=== PATIENT | female | born 1950 | race Caucasian/White ===

== ENCOUNTER 2019-08-19 16:06 | Emergency (ER) | payer MEDICARE ==
[2019-08-19] MEDS ORDERED: Meclizine 25 MG Tab PO ONE (17:40)
--- NOTE | 2019-08-19 18:15 | EDM.PDOC ---
ED HPI GENERAL MEDICAL PROBLEM - General Chief Complaint: General Stated Complaint: DIZZNESS Time Seen by Provider: 08/19/19 17:33 Source of Information: Reports: Patient History Limitations: Reports: No Limitations - History of Present Illness INITIAL COMMENTS - FREE TEXT/NARRATIVE: HISTORY AND PHYSICAL: History of present illness: Patient is a 69-year-old female who presents to the emergency room with complaints of intermittent nonspecific dizziness and localized area of soft tissue swelling to the left midfoot. She states she was diagnosed with influenza approximately 2 weeks ago and since that time has had intermittent episodes of dizziness. She states this is not precipitated by head movement or standing up quickly. She states it will come on all of a sudden and will last just a few seconds. She does not get to the point where she feels like she is going to pass out or blackout. This morning she noticed a small area of soft tissue swelling to the midfoot which is localized. States she is concerned as she does not recall any injury, trauma or problems with her shoes. Patient denies any fever, chills, headache, change in vision, syncope or near syncope. Denies any chest pain, back pain, shortness of breath or cough. Denies any GI or symptoms. Patient has been eating and drinking appropriately. Review of systems: As per history of present illness and below otherwise all systems reviewed and negative. Past medical history: As per history of present illness and as reviewed below otherwise noncontributory. Surgical history: As per history of present illness and as reviewed below otherwise noncontributory. Social history: See social history for further information Family history: As per history of present illness and as reviewed below otherwise noncontributory. Physical exam: General: Well-developed and well-nourished 69-year-old female. Alert and oriented. Nontoxic-appearing and in no acute distress. HEENT: Atraumatic, normocephalic, pupils equal and reactive bilaterally, negative for conjunctival pallor or scleral icterus, mucous membranes moist, TMs normal bilaterally, throat clear, neck supple, nontender, trachea midline. No drooling or trismus noted. No meningeal signs. No hot potato voice noted. Lungs: Clear to auscultation, breath sounds equal bilaterally, chest nontender. Heart: S1S2, regular rate and rhythm without overt murmur Abdomen: Soft, nondistended, nontender. Negative for masses or hepatosplenomegaly. Negative for costovertebral tenderness. Skin: Small nickel sized area of soft tissue swelling to the midfoot, non- erythematous and nontender to palpation. The area is nonfluctuant and nonindurated. Remaining skin is intact, warm, dry. No lesions or rashes noted. Extremities: Atraumatic, moves all extremities per self without difficulty or deficits, negative for cords or calf pain. See skin for details. Neurovascular unremarkable. Neuro: Awake, alert, oriented. Cranial nerves II through XII unremarkable. Cerebellum unremarkable. Motor and sensory unremarkable throughout. Exam nonfocal. Notes: Lab work is unremarkable. At this time I do not feel any imaging is warranted. Her vital signs remained stable. We discussed signs and symptoms that would prompt her to return to the emergency room. She states she does not have a primary care provider, I did give her information for close follow-up and establishing care. Supportive care measures were reviewed and discussed. Voices understanding and is agreeable to plan of care. Denies any further questions or concerns at this time. Diagnostics: CBC, CMP Therapeutics: Meclizine Prescription: None Impression: Dizziness Localized swelling, left foot Plan: 1. Today's lab work is unremarkable. Continue to monitor the foot for redness, increased swelling, etc... 2. You may alternate Tylenol and ibuprofen as needed for pain management 3. Establish care with a primary care provider and follow-up as we discussed. Return to the ED as needed and as discussed. Definitive disposition and diagnosis as appropriate pending reevaluation and review of above. - Related Data Allergies Allergy/AdvReac Type Severity Reaction Status Date / Time Penicillins Allergy Other Verified 08/19/19 16:46 statins Allergy Itching Uncoded 08/19/19 16:50 Home Meds: Home Meds . [No Known Home Meds] 08/19/19 [History] Past Medical History - Infectious Disease History Infectious Disease History: Reports: Chicken Pox, Measles - Past Surgical History HEENT Surgical History: Reports: Tonsillectomy GI Surgical History: Reports: Appendectomy, Cholecystectomy Female Surgical History: Reports: Hysterectomy Social & Family History - Family History Family Medical History: Noncontributory - Tobacco Use Smoking Status *Q: Never Smoker - Caffeine Use Caffeine Use: Reports: Coffee - Recreational Drug Use Recreational Drug Use: No ED ROS GENERAL - Review of Systems Review Of Systems: Comprehensive ROS is negative, except as noted in HPI. ED EXAM, GENERAL - Physical Exam Exam: See Below (See dictation) Course - Vital Signs Last Recorded V/S: Last Vital Signs Temp 97.2 F 08/19/19 16:46 Pulse 72 08/19/19 17:55 Resp 19 08/19/19 17:55 BP 152/70 H 08/19/19 17:55 Pulse Ox 96 08/19/19 17:55 - Orders/Labs/Meds Labs: Laboratory Tests 08/19/19 08/19/19 Range/Units 18:16 18:16 WBC 7.29 (4.0-11.0) K/uL RBC 4.86 (4.30-5.90) M/uL Hgb 13.8 (12.0-16.0) g/dL Hct 42.6 (36.0-46.0) % MCV 87.7 (80.0-98.0) fL MCH 28.4 (27.0-32.0) pg MCHC 32.4 (31.0-37.0) g/dL RDW Std Deviation 47.8 (28.0-62.0) fl RDW Coeff of John 15 (11.0-15.0) % Plt Count 300 (150-400) K/uL MPV 9.70 (7.40-12.00) fL Neut % (Auto) 56.2 (48.0-80.0) % Lymph % (Auto) 35.0 (16.0-40.0) % [place] % (Auto) 7.4 (0.0-15.0) % Eos % (Auto) 1.0 (0.0-7.0) % Baso % (Auto) 0.4 (0.0-1.5) % Neut # (Auto) 4.1 (1.4-5.7) K/uL Lymph # (Auto) 2.6 H (0.6-2.4) K/uL [place] # (Auto) 0.5 (0.0-0.8) K/uL Eos # (Auto) 0.1 (0.0-0.7) K/uL Baso # (Auto) 0.0 (0.0-0.1) K/uL Nucleated RBC % 0.0 /100WBC Nucleated RBCs # 0 K/uL Sodium 143 (136-145) mmol/L Potassium 4.9 (3.5-5.1) mmol/L Chloride 106 (98-107) mmol/L Carbon Dioxide 31.0 (21.0-32.0) mmol/L BUN 19 H (7.0-18.0) mg/dL Creatinine 0.8 (0.6-1.0) mg/dL Est Cr Clr Drug Dosing 66.95 mL/min Estimated GFR (MDRD) > 60.0 ml/min Glucose 99 (74-106) mg/dL Calcium 9.4 (8.5-10.1) mg/dL Total Bilirubin 0.3 (0.2-1.0) mg/dL AST 20 (15-37) IU/L ALT 26 (14-63) IU/L Alkaline Phosphatase 85 (46-116) U/L Total Protein 7.5 (6.4-8.2) g/dL Albumin 3.6 (3.4-5.0) g/dL Globulin 3.9 (2.6-4.0) g/dL Albumin/Globulin Ratio 0.9 (0.9-1.6) Meds: Medications Discontinued Medications Generic Name Dose Route Start Last Admin Trade Name Freq PRN Reason Stop Dose Admin Meclizine HCl 25 mg 08/19/19 17:40 08/19/19 17:54 Antivert PO 08/19/19 17:41 25 mg ONETIME ONE Administration Departure - Departure Time of Disposition: 18:49 Disposition: Home, Self-Care 01 Clinical Impression: Dizziness, Localized swelling of left foot - Discharge Information Instructions: Dizziness, [id number] Referrals: PCP,None [Primary Care Provider] - Forms: ED Department Discharge Additional Instructions: The following information is given to patients seen in the emergency department who are being discharged to home. This information is to outline your options for follow-up care. We provide all patients seen in our emergency department with a follow-up referral. The need for follow-up, as well as the timing and circumstances, are variable depending upon the specifics of your emergency department visit. If you don't have a primary care physician on staff, we will provide you with a referral. We always advise you to contact your personal physician following an emergency department visit to inform them of the circumstance of the visit and for follow-up with them and/or the need for any referrals to a consulting specialist. The emergency department will also refer you to a specialist when appropriate. This referral assures that you have the opportunity for follow-up care with a specialist. All of these measure are taken in an effort to provide you with optimal care, which includes your follow-up. Under all circumstances we always encourage you to contact your private physician who remains a resource for coordinating your care. When calling for follow-up care, please make the office aware that this follow-up is from your recent emergency room visit. If for any reason you are refused follow-up, please contact the [facility] Emergency Department at and asked to speak to the emergency department charge nurse. [facility] [address] [place] [id number] [place] [address] 1. Today's lab work is unremarkable. Continue to monitor the foot for redness, increased swelling, etc... In total: if symptoms worsen, new symptoms develop - please follow up with primary care or ED as we discussed. 2. You may alternate Tylenol and ibuprofen as needed for pain management 3. Establish care with a primary care provider and follow-up as we discussed. Return to the ED as needed and as discussed. Sepsis Event Note - Evaluation Sepsis Screening Result: No Definite Risk - Focused Exam Vital Signs: Vital Signs Temp Pulse Resp BP Pulse Ox 08/19/19 17:55 72 19 152/70 H 96 08/19/19 16:46 97.2 F 71 17 176/83 H 97 Date Exam was Performed: 08/19/19 Time Exam was Performed: 18:51
[2019-08-19 18:47] LABS: BLOOD UREA NITROGEN,BUN 19 mg/dL (7.0-18.0); CHLORIDE,CL 106 mmol/L (98-107); GLUCOSE RANDOM 99 mg/dL (74-106); POTASSIUM,K 4.9 mmol/L (3.5-5.1); SODIUM,NA 143 mmol/L (136-145)
== END 2019-08-19 19:00 | disposition home or self-care (01) ==
LOC: MW.ED 16:06
DX: R42 Dizziness and giddiness (principal); R22.42 Localized swelling, mass and lump, left lower limb; Z88.0 Allergy status to penicillin; Z88.8 Allergy status to other drugs, medicaments and biological substances
CPT/HCPCS: 36415; 80053; 85025; 99284; A9270; 99283

== ENCOUNTER 2020-01-02 14:34 | Emergency (ER) | payer MEDICARE ==
--- NOTE | 2020-01-02 15:47 | CR ---
Left tibia and fibula: AP and lateral views left tibia and fibula were obtained. Comparison: No prior study. Plantar spur is noted. Minimal spur at the attachment of the Achilles tendon to the calcaneus. Opacity is seen within the soft tissues within the lower calf. Please correlate as to etiology or whether this is artifact. Minimal degenerative change is seen within the spine. No acute fracture or other abnormality is appreciated. Impression: 1. Calcaneal spurs. 2. Soft tissue opacity as noted above. 2. Slight degenerative change. 4. No acute bony abnormality is seen. Diagnostic code #2 This report was dictated in MDT
--- NOTE | 2020-01-02 16:00 | EDM.PDOC ---
ED HPI GENERAL MEDICAL PROBLEM - General Chief Complaint: Lower Extremity Injury/Pain Stated Complaint: FELL Time Seen by Provider: 01/02/20 15:22 Source of Information: Reports: Patient History Limitations: Reports: No Limitations - History of Present Illness INITIAL COMMENTS - FREE TEXT/NARRATIVE: 69-year-old female presents with acute onset left calf pain after she slipped o ut of the bathtub just prior to arrival. She feels like she pulled her left calf. She complains of severe pain to the proximal left calf. She denies hitting her head, headache, chest pain, back pain, pelvic pain, ankle pain, knee pain. ROS: A 10-point review of systems, other than pertinent positives and negatives as stated per HPI, is otherwise negative PHYSICAL EXAM General: AOx4, GCS = 15, severe distress HEENT: dry mucous membrane Neck: supple, no meningismus, no Kernig or Brudzinski Cardiac: S1S2 RRR Respiratory: CTAB, no crackles or rales, no wheezing Abdomen: Soft, nontender, no rebound or guarding, nondistended, no pulsatile mass. Back: nontender Musculoskeletal: NVI distally, left proximal calf ttp/swelling. Negative Shahid's test. Soft posterior compartments in the calf. Neuro: No focal deficits, CN 2 - 12 WNL. Left Lower Leg Pain Score (Numeric/FACES): 10 - Related Data Allergies Allergy/AdvReac Type Severity Reaction Status Date / Time Penicillins Allergy Other Verified 01/02/20 14:57 statins Allergy Itching Uncoded 01/02/20 14:57 Home Meds: Home Meds Naproxen [Naprosyn] 500 mg PO Q12HR #10 tab 01/02/20 [Rx] lisinopriL [Lisinopril] 20 mg PO DAILY 01/02/20 [History] metFORMIN [Glucophage] 500 mg PO BID 01/02/20 [History] Past Medical History Cardiovascular History: Reports: Hypertension Respiratory History: Reports: None [employer] History: Reports: Musculoskeletal History: Reports: Fracture Neurological History: Reports: None Psychiatric History: Reports: None Endocrine/Metabolic History: Reports: Other (See Below) Other Endocrine/Metabolic History: pre diabetic Hematologic History: Reports: None Immunologic History: Reports: None Oncologic (Cancer) History: Reports: None Dermatologic History: Reports: None - Infectious Disease History Infectious Disease History: Reports: Chicken Pox, Measles, Mumps, Rheumatic Fever, Rubella - Past Surgical History Head Surgeries/Procedures: Reports: None HEENT Surgical History: Reports: LASIK, Tonsillectomy GI Surgical History: Reports: Appendectomy, Cholecystectomy Female Surgical History: Reports: Hysterectomy Social & Family History - Family History Family Medical History: Noncontributory - Tobacco Use Smoking Status *Q: Never Smoker - Caffeine Use Caffeine Use: Reports: Coffee - Recreational Drug Use Recreational Drug Use: No Review of Systems - Review of Systems Review Of Systems: Comprehensive ROS is negative, except as noted in HPI. ED EXAM, GENERAL - Physical Exam Exam: See Below (see dictation) Course - Vital Signs Last Recorded V/S: Last Vital Signs Temp 96.8 F L 01/02/20 14:54 Pulse 87 01/02/20 14:54 Resp 18 01/02/20 14:54 BP 126/79 01/02/20 14:54 Pulse Ox 95 01/02/20 14:54 - Re-Assessments/Exams Free Text/Narrative Re-Assessment/Exam: 01/02/20 18:44 After treatments and a prolonged observation period in the ER, the patient improved clinically and is stable for discharge. I performed a repeat examination and the patient has not demonstrated any new abnormal findings. Patient exhibits normal vital signs I advised the patient to return to the ER for reevaluation if symptoms worsened, and to follow up with their PCP within 2- 3 days. MEDICAL DECISION MAKING: I reviewed the patients past medical records, lab and radiographic findings. I discussed the case with the patient. My differential diagnosis included: DVT, Batres's cyst, calf strain. He has no tenderness to her Achilles insertion site, she has a negative Shahid test, I do not suspect Achilles tendon rupture. Her posterior compartments are soft, I do not suspect compartment syndrome. Based on her clinical presentation, I suspect that she strained her calf. I instructed on rice treatment and anti-inflammatory medication, return to the ER for worsening pain, fever, chills, leg pain. 01/02/20 18:46 Departure - Departure Time of Disposition: 18:45 Disposition: Home, Self-Care 01 Condition: Good Clinical Impression: Strain of left calf muscle - Discharge Information *PRESCRIPTION DRUG MONITORING PROGRAM REVIEWED*: Not Applicable *COPY OF PRESCRIPTION DRUG MONITORING REPORT IN PATIENT GISSEL: Not Applicable Prescriptions: Naproxen [Naprosyn] 500 mg PO Q12HR #10 tab Referrals: PCP,None [Primary Care Provider] - Forms: ED Department Discharge Additional Instructions: The following information is given to patients seen in the emergency department who are being discharged to home. This information is to outline your options for follow-up care. We provide all patients seen in our emergency department with a follow-up referral. The need for follow-up, as well as the timing and circumstances, are variable depending upon the specifics of your emergency department visit. If you don't have a primary care physician on staff, we will provide you with a referral. We always advise you to contact your personal physician following an emergency department visit to inform them of the circumstance of the visit and for follow-up with them and/or the need for any referrals to a consulting specialist. The emergency department will also refer you to a specialist when appropriate. This referral assures that you have the opportunity for follow-up care with a specialist. All of these measure are taken in an effort to provide you with optimal care, which includes your follow-up. Under all circumstances we always encourage you to contact your private physician who remains a resource for coordinating your care. When calling for follow-up care, please make the office aware that this follow-up is from your recent emergency room visit. If for any reason you are refused follow-up, please contact the [facility] Emergency Department at and asked to speak to the emergency department charge nurse. If you do not have a primary care doctor, please follow up with the clinics below within 3-5 days. [facility] - Primary Care [address] [place] [address] [facility] [address] [place] [address] Sepsis Event Note (ED) - Evaluation Sepsis Screening Result: No Definite Risk - Focused Exam Vital Signs: Vital Signs Temp Pulse Resp BP Pulse Ox 01/02/20 14:54 96.8 F L 87 18 126/79 95
--- NOTE | 2020-01-02 18:43 | US ---
INDICATION: Left calf pain TECHNIQUE: : Ultrasound venous duplex lower extremity bilateral. Compression venous exam was performed using dodson-scale, color Doppler, and spectral Doppler imaging. COMPARISON: None. FINDINGS: Sonographic imaging demonstrates the common femoral, deep femoral, superficial femoral, popliteal, posterior tibial, peroneal and greater saphenous veins to be fully compressible with normal color Doppler blood flow in both lower extremities. Remainder negative. IMPRESSION: No evidence for DVT in either leg. Dictated by Franklin Acevedo MD @ Jan 02 2020 6:41PM Signed by Dr. Franklin Acevedo @ Jan 02 2020 6:41PM
== END 2020-01-02 19:15 | disposition home or self-care (01) ==
LOC: MW.ED 14:34
DX: S86.912A Strain of unspecified muscle(s) and tendon(s) at lower leg level, left leg, initial encounter (principal); Z88.0 Allergy status to penicillin; Z88.8 Allergy status to other drugs, medicaments and biological substances; Z79.84 Long term (current) use of oral hypoglycemic drugs; Z79.899 Other long term (current) drug therapy; W01.0XXA Fall on same level from slipping, tripping and stumbling without subsequent striking against object, initial encounter
CPT/HCPCS: 73590-26-LT; 73590-LT; 93971-26-LT; 93971-LT; 99283; 99284-25